=== PATIENT | male | born 1950 | race Caucasian/White ===

== ENCOUNTER 2017-01-26 10:02 | Day surgery (SDC) | payer OTHER ==
[~2017-01-26] VITALS: Ht 177.8 cm; Wt 106.8 kg
[2017-01-26] VITALS (8 sets, daily range): BP systolic 105–183; BP diastolic 39–84; PULSE 66–72; RESP 16–20; TEMP 97.7–97.9; O2SAT 92–97
[2017-01-26] MEDS ORDERED: PROB1CAP12 (10:26)
[2017-01-26] MEDS ORDERED: AMLO10TA2 PO (10:26)
[2017-01-26] MEDS ORDERED: VITA500T PO (10:26)
[2017-01-26] MEDS ORDERED: ASPI-110 PO (10:26)
[2017-01-26] MEDS ORDERED: METF500T PO (10:26)
[2017-01-26] MEDS ORDERED: SIMV20TA PO (10:26)
[2017-01-26] MEDS ORDERED: MONT10TA4 PO (10:26)
[2017-01-26] MEDS ORDERED: MULT1TAB84 PO (10:26)
[2017-01-26] MEDS ORDERED: MISC1TAB (10:26)
[2017-01-26] MEDS ORDERED: OMEP20TA PO (10:26)
[2017-01-26] MEDS ORDERED: GLIP5TAB8 PO (10:26)
[2017-01-26] MEDS ORDERED: SODIUM CHLORIDE 5 ML FLUSH PRN IVF (10:30)
[2017-01-26] MEDS ORDERED: SODIUM CHLOR 0.9% 1000 ML IV SCH (10:30)
[2017-01-26] MEDS ORDERED: LIDOCAINE 1%/EPINEPHrine 1:100,000 SOLN 20 ML VIAL ONE (12:28)
[2017-01-26] MEDS ORDERED: fentaNYL CITRATE 250 MCG/5 ML AMP ONE (13:02)
[2017-01-26] MEDS ORDERED: MIDAZOLAM HCL 5 MG/5 ML VIAL ONE (13:02)
--- NOTE | 2017-01-26 15:41 | RADRPT ---
EXAM DATE/TIME: 01/26/2017 13:09 [place] COMPARISON: No previous studies available for comparison. INDICATIONS : Elevated liver function. SEDATION TIME: 30 minutes BIOPSY SITE: MEDICATION(S): 1.) 2 mg midazolam (Versed) IV 2.) 100 mcg fentanyl (Sublimaze) IV DEVICE(S): 1.) 18 gauge BioPince needle MEDICAL HISTORY : Hypertension. Diabetes mellitus type 2. SURGICAL HISTORY : None. ENCOUNTER: Initial ACUITY: 1 day PAIN SCORE: 0/10 LOCATION: Right A total of one core specimen(s) were obtained and sent to the laboratory for pathologic evaluation. PROCEDURE: 1. CT guided liver biopsy. 2. Conscious sedation with continuous EKG and oximetry monitoring. 3. EKG and oximetry remained stable throughout the procedure. Prior to the procedure informed consent was obtained. Any appropriate prior imaging studies were rev iewed. Using automated exposure control and adjustment of the mA and/or kV according to patient size, radiat ion dose was kept as low as reasonably achievable to obtain optimal diagnostic quality images. The site was prepped in a sterile fashion. Full sterile technique was used, including cap, mask, ojse rile gloves and gown and a large sterile sheet. Hand hygiene and 2% chlorhexidine and/or betadine/al cohol prep was utilized per protocol for cutaneous antisepsis. The skin and subcutaneous tissues wer e infiltrated with local anesthetic solution. With CT guidance the previously identified target was localized. Biopsy was performed using the presc ribed needle as above. Adequate hemostasis was obtained with compression at the puncture site. Follow-up CT scan reveals no hemorrhage. The patient tolerated the procedure well and there were no complications. The patient was returned to the Radiology Outpatient Unit in stable condition. CONCLUSION: Uncomplicated CT guided biopsy. Brian Culver MD FACR on January 26, 2017 at 15:39 Board Certified Radiologist. This report was verified electronically.
[2017-01-26] MEDS ORDERED: SODIUM CHLORIDE 5 ML FLUSH BID IVF SCH (21:00)
== END 2017-01-26 16:54 | disposition home or self-care (01) ==
LOC: HRAD 10:02 → HRIP 10:04 → HRAD 16:54
DX: K76.0 Fatty (change of) liver, not elsewhere classified (principal); R74.8 Abnormal levels of other serum enzymes; I10 Essential (primary) hypertension; E11.9 Type 2 diabetes mellitus without complications
CPT/HCPCS: 47000; 77012; 88307; 88313; J2250; J3010; J7030